=== PATIENT | male | born 1990 | race Hispanic/Latino ===

== ENCOUNTER 2018-06-01 05:40 | Day surgery (SDC) | payer OTHER ==
[~2018-06-01] VITALS: Ht 170.2 cm; Wt 83.5 kg
--- NOTE | ~2018-06-01 | OR ---
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 PROCEDURE: Subacromial decompression. ANESTHESIA: General. SPECIMENS AND COMPLICATIONS: There were no specimens or complications. TOURNIQUET: Not used. BLOOD LOSS: Minimal. WHAT WAS DONE: The patient was taken to the operating room. After anesthesia was induced and airway secured, the patient was placed in a modified beach chair position, and prepped and draped in a routine sterile fashion. The bony topography was outlined with a skin marking pen and the arthroscope was inserted through the standard posterior portal. Diagnostic arthroscopy of the shoulder joint itself revealed an unremarkable glenoid and unremarkable humeral head. The labrum was unremarkable in all respects. The rotator cuff was intact without any evidence of fraying as was the biceps tendon and the biceps anchor. We therefore withdrew the scope from the shoulder joint and redirected it into the subacromial space. There was a rather dense bursitis. We therefore created an axillary lateral portal and introduced a VAPR electrosurgical device. We used the VAPR to do a subacromial bursectomy. We then used the VAPR to remove the soft tissue off the undersurface of the anterior and lateral acromion and then extended the dissection medially to the AC joint. The AC joint appeared unremarkable. There was very little room noted in the subacromial space. Once we had completely removed the bursa, we PATIENT NAME: CAIT PRAJAPATI OPERATIVE REPORT DATE OF : 89 REPORT #: [id number] PHYSICIAN: TERE RTEJO MD PCP: NO PRIMARY CARE PHYSICIAN REPORT IS CONFIDENTIAL AND NOT TO BE RELEASED WITHOUT AUTHORIZATION [facility] [address], [place] [address] Draft inspected the outer aspect of the rotator cuff and found no areas of tearing or concern. We therefore introduced a 4 mm jessica and did a generous subacromial decompression resecting the undersurface of the acromion until there were no more anterior hook and no more apparent impingement. Subacromial space was copiously irrigated and drained. The portals were closed and a sterile dressing and a sling applied. The patient was awakened, taken to the recovery room, they arrived in stable condition. Counts were correct and antibiotic protocols were followed. Tere Trejo MD WFB/MODL /[id number] Copies: ~ PATIENT NAME: GÓMEZ JOLLEY,CAIT OPERATIVE REPORT DATE OF : [birth year] REPORT #: [id number] PHYSICIAN: TERE TREJO MD PCP: NO PRIMARY CARE PHYSICIAN REPORT IS CONFIDENTIAL AND NOT TO BE RELEASED WITHOUT AUTHORIZATION
[2018-06-01] MEDS ORDERED: MOBIC7.5 MG PO (06:01)
--- NOTE | 2018-06-01 08:49 | NUR ---
[facility]18 [facility]49 [facility] PACU SLEEPY WITH ORAL AIRWAY IN PLACE. TRANSPORT GUARDS AT BEDSIDE. 0845 PT DROWSY. ORAL AIRWAY REMOVED. NO C/O'S.
[2018-06-01] MEDS ORDERED: ULTRAM50 MG (10:14)
--- NOTE | 2018-06-01 10:36 | NUR ---
1030 REPORT CALLED TO [facility]. NO QUESTIONS.
== END 2018-06-01 10:32 | disposition home or self-care (01) ==
LOC: OPS 05:40 → DS 05:40 → OPS 06:45 → DS 06:45 → OPS 10:32
PROVIDERS: Orthopaedic Surgery
PROC: 0RNJ4ZZ Release Right Shoulder Joint, Percutaneous Endoscopic Approach (ICD-10-PCS; 2018-06-01)
PROC: 0RBJ4ZZ Excision of Right Shoulder Joint, Percutaneous Endoscopic Approach (ICD-10-PCS; principal; 2018-06-01 06:45)
DX: M25.811 Other specified joint disorders, right shoulder (principal); Z79.899 Other long term (current) drug therapy
CPT/HCPCS: 01630; 64415; 76942; J0330; J0690; J1100; J1885; J2250; J2405; J2704; J2795; J3010; J7120